=== PATIENT | female | born 1950 | race Caucasian/White ===

== ENCOUNTER → 2016-11-17 | Outpatient (CLI) | payer BC, MEDICARE ==
--- NOTE | 2016-11-19 11:59 | CR ---
EXAM DATE: 11/17/16 PATIENT'S AGE: 66 Patient: NATALIE PEOPLES Facility: [place], [place] Site . Site : 1950 Study: XRay Extremity Left [id number] 2:53:14 PM Ordering Physician: Paula Smith Final Report: HISTORY: Trauma and pain. Fell on ice in July. Findings: AP and frogleg views of the pelvis are compared 24 August 2016. The iliac crests have been excluded from the exam. Bilateral pelvic phleboliths are present. No subchondral abnormality. No subacute fracture or acute fracture line is seen. Impression: No subacute or acute fracture seen within the left hip. Dictated by Ayesha Gomes MD @ Nov 18 2016 10:48PM (Electronic Signature) Report Signed by Proxy and Original Signed Document filed in the Medical Record. CORWIN
== END ==
LOC: MW.CHORTHO 14:07
PROVIDERS: ATTEND Orthopaedic Surgery
DX: M25.552 Pain in left hip (principal)
CPT/HCPCS: 73502-26-LT; 73502-LT

== ENCOUNTER → 2016-12-03 | Outpatient (CLI) | payer BC, MEDICARE ==
--- NOTE | 2016-12-03 14:45 | MY ---
EXAMINATION: Bilateral digital mammography utilizing CAD. HISTORY: Screening exam. Comparison is made to previous studies dated 12/05/2015, 10/18/2014. FINDINGS: Bilateral scattered fibroglandular densities. No suspicious calcifications, masses or a rchitectural distortions. No pathologic appearing lymph nodes, no abnormal skin thickening or nipp le inversion. CAD highlighted regions appear normal at this time. IMPRESSION: BI-RADS category I - negative mammogram. Continued screening according to ACR-ACS gu idelines suggested. THE FALSE-NEGATIVE RATE OF MAMMOGRAM IS APPROXIMATELY 10%. MANAGEMENT OF A PALPABLE ABNORMALITY MUST BE BASED UPON CLINICAL GROUNDS. SENSITIVITY FOR DETECTION OF ABNORMALITIES IN DENSE BREASTS IS LOW. NOTE: A letter will be sent to the patient regarding findings. [facility] -- DANAE Lynch [phone] - FAX [phone]
== END ==
LOC: MW.MAM 11:03
PROVIDERS: ATTEND Obstetrics & Gynecology
DX: Z12.31 Encounter for screening mammogram for malignant neoplasm of breast (principal)
CPT/HCPCS: G0202; G0202-26

== ENCOUNTER 2017-04-12 00:15 | Emergency (ER) | payer BC, MEDICARE ==
--- NOTE | 2017-04-12 00:26 | EDM.PDOC ---
ED HPI GENERAL MEDICAL PROBLEM - General Chief Complaint: General Stated Complaint: HERE FOR A SHOT Time Seen by Provider: 04/12/17 00:22 - History of Present Illness INITIAL COMMENTS - FREE TEXT/NARRATIVE: HISTORY AND PHYSICAL: History of present illness: Patient 67-year-old female presents here for Neulasta injection patient's oncologist Dr. Orozco from [facility] called and asked if we would be a little comminuted 6 mg subcutaneous injection since her delivery device malfunctioned patient has no other requests and no other concerns Review of systems: As per history of present illness and below otherwise all systems reviewed and negative. Past medical history: As per history of present illness and as reviewed below otherwise noncontributory. Surgical history: As per history of present illness and as reviewed below otherwise noncontributory. Social history: No reported history of drug or alcohol abuse. Family history: As per history of present illness and as reviewed below otherwise noncontributory. Physical exam: Deferred Diagnostics: None Therapeutics: Neulasta 6 mg subcutaneous Impression: #1 medication request #2 history of lymphoma Definitive disposition and diagnosis as appropriate pending reevaluation and review of above. - Related Data Allergies Allergy/AdvReac Type Severity Reaction Status Date / Time Penicillins Allergy Unknown Rash Verified 04/12/17 00:20 succinylcholine Allergy Unknown Cannot Verified 04/12/17 00:20 [Succinylcholine] Remember methylene blue Allergy Severe Hypotension Uncoded 04/12/17 00:20 Home Meds: Home Meds Albuterol [Ventolin HFA] 1 puff INH Q4H PRN 11/23/13 [History] Esomeprazole [NexIUM] 1 tab PO DAILY 08/18/14 [History] Lisinopril 20 mg PO DAILY 08/24/16 [History] Past Medical History Cardiovascular History: Reports: Hypertension Respiratory History: Reports: Asthma Gastrointestinal History: Reports: GERD Other Gastrointestinal History: acid reflux 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: Other Oncologic History: Follicular lymphoma - Past Surgical History GI Surgical History: Reports: Small Bowel Female Surgical History: Reports: Hysterectomy, Salpingo-Oophorectomy Social & Family History - Family History Cardiac: Reports: Hypertension, [place], Prior Cardiac Arrest, Other (See Below) Other Cardiac Family History: rheumatic fever and developed heart problem OBGYN: Reports: Oncologic: Reports: Ovarian - Tobacco Use Smoking Status *Q: Never Smoker Second Hand Smoke Exposure: No - Caffeine Use Caffeine Use: Reports: Coffee - Alcohol Use Days Per Week of Alcohol Use: 0 Number of Drinks Per Day: 0 Total Drinks Per Week: 0 - Recreational Drug Use Recreational Drug Use: No Drug Use in Last 12 Months: No ED ROS GENERAL - Review of Systems Review Of Systems: ROS reveals no pertinent complaints other than HPI. ED EXAM, GENERAL - Physical Exam Exam: See Below (See dictation) Departure - Departure Time of Disposition: 00:25 Disposition: Home, Self-Care 01 Condition: Good Clinical Impression: Lymphoma, Medication requested - Discharge Information Referrals: Crispin Alfaro MD [Primary Care Provider] - Additional Instructions: The following information is given to patients seen in the emergency department who are being discharged to home. This information is to outline your options for follow-up care. We provide all patients seen in our emergency department with a follow-up referral. The need for follow-up, as well as the timing and circumstances, are variable depending upon the specifics of your emergency department visit. If you don't have a primary care physician on staff, we will provide you with a referral. We always advise you to contact your personal physician following an emergency department visit to inform them of the circumstance of the visit and for follow-up with them and/or the need for any referrals to a consulting specialist. The emergency department will also refer you to a specialist when appropriate. This referral assures that you have the opportunity for followup care with a specialist. All of these measure are taken in an effort to provide you with optimal care, which includes your followup. Under all circumstances we always encourage you to contact your private physician who remains a resource for coordinating your care. When calling for followup care, please make the office aware that this follow-up is from your recent emergency room visit. If for any reason you are refused follow-up, please contact the [facility] emergency department at and asked to speak to the emergency department charge nurse. Follow private medical doctor 1-2 days return as needed as discussed
[2017-04-12] MEDS ORDERED: [UNRECOGNIZED DRUG - OTHER] SUBCUT ONE (00:31)
[2017-04-12 00:57] VITALS: BP 138/76
== END 2017-04-12 01:01 | disposition home or self-care (01) ==
LOC: MW.ED 00:15
DX: C82.90 Follicular lymphoma, unspecified, unspecified site (principal); I10 Essential (primary) hypertension; J45.909 Unspecified asthma, uncomplicated; K21.9 Gastro-esophageal reflux disease without esophagitis; Z90.710 Acquired absence of both cervix and uterus; Z79.899 Other long term (current) drug therapy; Z88.0 Allergy status to penicillin; Z88.8 Allergy status to other drugs, medicaments and biological substances
CPT/HCPCS: 99281; J2505; 99282

== ENCOUNTER 2017-05-29 19:59 | Observation (INO) | payer BC, MEDICARE ==
--- NOTE | 2017-05-29 20:18 | EDM.PDOC ---
<Yanely Ayala - Last Filed: 05/29/17 21:58> ED HPI GENERAL MEDICAL PROBLEM - General Chief Complaint: Fever Stated Complaint: FEVER/ONCOLOGY PT Time Seen by Provider: 05/29/17 20:20 Source of Information: Reports: Patient History Limitations: Reports: No Limitations - History of Present Illness INITIAL COMMENTS - FREE TEXT/NARRATIVE: HISTORY AND PHYSICAL: History of present illness: [Patient comes to the emergency room complaining of not feeling feeling well and having a fever. 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 She received her most recent dose, which was her fifth round, of chemotherapy on May 21 at [place] and had labs done at that time. She reports that Platelets 159, hgb 8.1, wbc 0.64. She was advised to follow-up in the emergency room if she had a temperature over 100. She felt ill today and checked her temperature and got a reading of 101. She probably came to the emergency room for evaluation. She is unable to pinpoint any specific pain or complaint but overall is just not feeling well. Has had fever or chills this afternoon and evening, and generalized malaise. She denies runny nose earaches and sore throat. No cough or chest congestion. No chest pain shortness of breath or difficulty breathing. She's had ongoing swelling to her feet and lower legs since starting chemotherapy and denies any increased swelling or new onset pain. Is urinating easily and without burning. No low back pain. No diarrhea or constipation. No blood in her stools or urine. No new muscle or joint aches or pains. States that her heart rate has been increased since starting chemotherapy, usually running between 110 and 120. She has had several echocardiograms and is following this regularly with her doctors at [facility]. Follows regularly w/ PCP, Dr. Alfaro Review of systems: As per history of present illness and below otherwise all systems reviewed and negative. Past medical history: As per history of present illness and as reviewed below otherwise noncontributory. Surgical history: As per history of present illness and as reviewed below otherwise noncontributory. Social history: No reported history of drug or alcohol abuse. Family history: As per history of present illness and as reviewed below otherwise noncontributory. Physical exam: General: Temperature 101.3 orally. Heart rate 116. HEENT: Atraumatic, normocephalic. TMs are pearly duff and without erythema and effusion. Oral mucous membranes are pink and moist. No tonsillar swelling erythema or exudate. Neck supple and nontender. No lymphadenopathy. Lungs: Clear to auscultation, breath sounds equal bilaterally. No wheezing crackles or rales. Heart: S1S2, regular rate and rhythm., negative for clicks, rubs, or JVD. Abdomen: Soft, nondistended, nontender. Negative for guarding and rebound. Negative for costovertebral tenderness. Pelvis: Stable nontender. Genitourinary: Deferred. Rectal: Deferred. Extremities: Atraumatic in appearance. Swollen but nonpitting.. Neurovascular unremarkable. Neuro: Awake, alert, oriented. Motor and sensory unremarkable throughout. Exam nonfocal. Psych: Pleasant conversational. Diagnostics: [CXR, CBC, CMP, UA, urine culture, blood cultures x2, lactic acid] Therapeutics: [1 liter NS at 500mL/hour, Tylenol 1000mg po] Impression: [] Plan: [Urinalysis is clear.] Definitive disposition and diagnosis as appropriate pending reevaluation and review of above. - Related Data Allergies Allergy/AdvReac Type Severity Reaction Status Date / Time Penicillins Allergy Unknown Rash Verified 05/29/17 20:20 succinylcholine Allergy Unknown Cannot Verified 05/29/17 20:20 [Succinylcholine] Remember methylene blue Allergy Severe Hypotension Uncoded 05/29/17 20:20 Home Meds: Home Meds Albuterol [Ventolin HFA] 1 puff INH Q4H PRN 11/23/13 [History] Apixaban [Eliquis] 5 mg PO BID 04/12/17 [History] Ascorbic Acid [Vitamin C] 1,000 mg PO BID 04/12/17 [History] Calcium Carbonate [Calcium] 500 mg PO BID 04/12/17 [History] Cyanocobalamin (Vitamin B12) [Vitamin B12] 1,000 mcg PO DAILY 04/12/17 [History] Multivitamin [Multivitamins] 1 tab PO DAILY 04/12/17 [History] Pegfilgrastim [Neulasta] 6 mg SQ ASDIRECTED 04/12/17 [History] Rchop 0 mg IV ASDIRECTED 04/12/17 [History] Thiamine [Vitamin B-1] 100 mg PO DAILY 04/12/17 [History] Vitamin B6-pyridOXINE [Vitamin B6] 100 mg PO DAILY 04/12/17 [History] Alpha Lipoic Acid 200 mg PO BID 05/29/17 [History] Cholecalciferol (Vitamin D3) [Vitamin D3] 2,000 mg PO BID 05/29/17 [History] Fish Oil/[place]-3 Fatty Acids [Fish Oil 1,000 MG] 1,000 mg PO DAILY 05/29/17 [ History] Hydrochlorothiazide 12.5 mg PO DAILY PRN 05/29/17 [History] L.acidoph,Paracasei, B.lactis [Probiotic] 1 cap PO DAILY 05/29/17 [History] Magnesium 400 mg PO DAILY 05/29/17 [History] Vit C/E/Zn/Coppr/Lutein/Zeaxan [Preservision Areds 2 Softgel] 1 cap PO DAILY 10/10 [History] Past Medical History - Past Health History Medical/Surgical History: Denies Medical/Surgical History HEENT History: Reports: Impaired Vision Other HEENT History: wears glasses Cardiovascular History: Reports: Hypertension Respiratory History: Reports: Asthma Gastrointestinal History: Reports: GERD Other Gastrointestinal History: acid reflux 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: Endocrine/Metabolic History: Reports: Obesity/BMI 30+ Other Oncologic History: Follicular lymphoma - Past Surgical History GI Surgical History: Reports: Small Bowel Female Surgical History: Reports: Hysterectomy, Salpingo-Oophorectomy Social & Family History - Family History Family Medical History: Noncontributory Cardiac: Reports: Hypertension, [place], Prior Cardiac Arrest, Other (See Below) Other Cardiac Family History: rheumatic fever and developed heart problem OBGYN: Reports: Oncologic: Reports: Ovarian - Tobacco Use Smoking Status *Q: Never Smoker Second Hand Smoke Exposure: No - Caffeine Use Caffeine Use: Reports: Coffee - Alcohol Use Days Per Week of Alcohol Use: 0 Number of Drinks Per Day: 0 Total Drinks Per Week: 0 - Recreational Drug Use Recreational Drug Use: No Drug Use in Last 12 Months: No ED ROS GENERAL - Review of Systems Review Of Systems: ROS reveals no pertinent complaints other than HPI. ED EXAM, SEPSIS - Physical Exam Exam: See Below Course - Vital Signs Last Recorded V/S: Last Vital Signs Temp 37.2 C 05/29/17 23:27 Pulse 116 H 05/29/17 23:27 Resp 18 05/29/17 23:27 BP 140/64 05/29/17 23:27 Pulse Ox 94 L 05/29/17 23:27 - Orders/Labs/Meds Orders: Active Orders 24 hr Category Date Time Status Chest 2V [CR] Stat Exams 05/29/17 20:19 Taken CULTURE BLOOD [BC] Stat Lab 05/29/17 20:38 Received CULTURE BLOOD [BC] Stat Lab 05/29/17 22:02 Results CULTURE URINE [RM] Stat Lab 05/29/17 20:55 Received Cefepime [Maxipime in D5W 2 GM/50 ML] 2 gm Med 05/29/17 23:49 Active Premix Bag 1 bag IV ONETIME Vancomycin [Vancocin] 1 gm Med 05/29/17 23:53 Active Sodium Chloride 0.9% [Normal Saline] 250 ml IV ONETIME Blood Culture x2 Reflex Set [OM.PC] Stat Oth 05/29/17 20:19 Ordered Medication Orders Cefepime HCl 2 gm/ Premix 50 mls @ 100 mls/hr IV ONETIME ONE Stop: 05/30/17 00:18 Vancomycin HCl 1 gm/ Sodium (Chloride) 250 mls @ 166 mls/hr IV ONETIME ONE Stop: 05/30/17 01:23 Labs: Laboratory Tests 05/29/17 05/29/17 05/29/17 Range/Units 20:55 22:02 22:02 WBC 0.97 L (4.0-11.0) K/uL RBC 2.66 L (4.30-5.90) M/uL Hgb 7.6 L (12.0-16.0) g/dL Hct 23.4 L (36.0-46.0) % MCV 88.0 (80.0-98.0) fL MCH 28.6 (27.0-32.0) pg MCHC 32.5 (31.0-37.0) g/dL RDW Std Deviation 59.3 (28.0-62.0) fl RDW Coeff of Jessica 19 H (11.0-15.0) % Plt Count 150 (150-400) K/uL MPV 10.60 (7.40-12.00) fL Add Manual Diff YES Neutrophils % (Manual) 14 L (48.0-80.0) % Band Neutrophils % 2 % Lymphocytes % (Manual) 58 H (16.0-40.0) % Monocytes % (Manual) 10 (0.0-15.0) % Eosinophils % (Manual) 10 H (0.0-7.0) % Basophils % (Manual) 6 H (0.0-1.5) % Nucleated RBC % 6.7 /100WBC Absolute Seg Neuts 0.1 L (1.4-5.7) Band Neutrophils # 0 Lymphocytes # (Manual) 0.6 (0.6-2.4) Monocytes # (Manual) 0.1 (0.0-0.8) Eosinophils # (Manual) 0.1 (0.0-0.7) Basophils # (Manual) 0.1 (0.0-0.1) Nucleated RBCs # 1 K/uL Lactate 1.2 (0.20-2.00) mmol/L Sodium (136-146) mmol/L Potassium (3.5-5.1) mmol/L Chloride (98-110) mmol/L Carbon Dioxide (21-31) mmol/L BUN (6.0-23.0) mg/dL Creatinine (0.6-1.5) mg/dL Est Cr Clr Drug Dosing mL/min Estimated GFR (MDRD) ml/min Glucose (60-110) mg/dL Calcium (8.8-10.8) mg/dL Total Bilirubin (0.1-1.5) mg/dL AST (5-40) IU/L ALT (8-54) IU/L Alkaline Phosphatase (40-150) Total Protein (6.0-8.0) g/dL Albumin (3.4-4.8) g/dL Globulin (2.0-3.5) g/dL Albumin/Globulin Ratio (1.3-2.8) Urine Color YELLOW Urine Appearance CLEAR Urine pH 7.0 (5.0-8.0) Ur Specific [place] 1.010 (1.001-1.035) Urine Protein NEGATIVE (NEGATIVE) mg/dL Urine Glucose (UA) NEGATIVE (NEGATIVE) mg/dL Urine Ketones NEGATIVE (NEGATIVE) mg/dL Urine Occult Blood NEGATIVE (NEGATIVE) Urine Nitrite NEGATIVE (NEGATIVE) Urine Bilirubin NEGATIVE (NEGATIVE) Urine Urobilinogen 0.2 (<2.0) EU/dL Ur Leukocyte Esterase NEGATIVE (NEGATIVE) Urine RBC 0-2 (0-2/HPF) Urine WBC 1-3 (0-5/HPF) Ur Epithelial Cells FEW (NONE-FEW) Amorphous Sediment FEW (NEGATIVE) Urine Bacteria FEW (NEGATIVE) Urine Mucus RARE (NONE-MOD) 05/29/17 Range/Units 22:02 WBC (4.0-11.0) K/uL RBC (4.30-5.90) M/uL Hgb (12.0-16.0) g/dL Hct (36.0-46.0) % MCV (80.0-98.0) fL MCH (27.0-32.0) pg MCHC (31.0-37.0) g/dL RDW Std Deviation (28.0-62.0) fl RDW Coeff of Jessica (11.0-15.0) % Plt Count (150-400) K/uL MPV (7.40-12.00) fL Add Manual Diff Neutrophils % (Manual) (48.0-80.0) % Band Neutrophils % % Lymphocytes % (Manual) (16.0-40.0) % Monocytes % (Manual) (0.0-15.0) % Eosinophils % (Manual) (0.0-7.0) % Basophils % (Manual) (0.0-1.5) % Nucleated RBC % /100WBC Absolute Seg Neuts (1.4-5.7) Band Neutrophils # Lymphocytes # (Manual) (0.6-2.4) Monocytes # (Manual) (0.0-0.8) Eosinophils # (Manual) (0.0-0.7) Basophils # (Manual) (0.0-0.1) Nucleated RBCs # K/uL Lactate (0.20-2.00) mmol/L Sodium 137 (136-146) mmol/L Potassium 4.0 (3.5-5.1) mmol/L Chloride 105 (98-110) mmol/L Carbon Dioxide 25 (21-31) mmol/L BUN 9 (6.0-23.0) mg/dL Creatinine 0.7 (0.6-1.5) mg/dL Est Cr Clr Drug Dosing 63.63 mL/min Estimated GFR (MDRD) > 60.0 ml/min Glucose 127 H (60-110) mg/dL Calcium 8.7 L (8.8-10.8) mg/dL Total Bilirubin 0.2 (0.1-1.5) mg/dL AST 10 (5-40) IU/L ALT 12 (8-54) IU/L Alkaline Phosphatase 58 (40-150) Total Protein 5.5 L (6.0-8.0) g/dL Albumin 3.2 L (3.4-4.8) g/dL Globulin 2.3 (2.0-3.5) g/dL Albumin/Globulin Ratio 1.4 (1.3-2.8) Urine Color Urine Appearance Urine pH (5.0-8.0) Ur Specific [place] (1.001-1.035) Urine Protein (NEGATIVE) mg/dL Urine Glucose (UA) (NEGATIVE) mg/dL Urine Ketones (NEGATIVE) mg/dL Urine Occult Blood (NEGATIVE) Urine Nitrite (NEGATIVE) Urine Bilirubin (NEGATIVE) Urine Urobilinogen (<2.0) EU/dL Ur Leukocyte Esterase (NEGATIVE) Urine RBC (0-2/HPF) Urine WBC (0-5/HPF) Ur Epithelial Cells (NONE-FEW) Amorphous Sediment (NEGATIVE) Urine Bacteria (NEGATIVE) Urine Mucus (NONE-MOD) Meds: Medications Generic Name Dose Route Start Last Admin Trade Name Freq PRN Reason Stop Dose Admin Cefepime HCl 2 gm/ Premix 50 mls @ 100 mls/hr 05/29/17 23:49 IV 05/30/17 00:18 ONETIME ONE Vancomycin HCl 1 gm/ Sodium 250 mls @ 166 mls/hr 05/29/17 23:53 Chloride IV 05/30/17 01:23 ONETIME ONE Discontinued Medications Generic Name Dose Route Start Last Admin Trade Name Freq PRN Reason Stop Dose Admin Acetaminophen 1,000 mg 05/29/17 20:34 05/29/17 20:56 Tylenol Extra Strength PO 05/29/17 20:35 1,000 mg ONETIME ONE Administration Sodium Chloride 1,000 mls @ 500 mls/hr 05/29/17 20:33 05/29/17 22:02 Normal Saline IV 05/29/17 22:32 500 mls/hr STAT ONE Administration Departure - Departure Disposition: Refer to Observation Clinical Impression: Lymphoma, Neutropenic fever - Discharge Information Referrals: Crispin Alfaro MD [Primary Care Provider] - Forms: ED Department Discharge - My Orders Last 24 Hours: My Active Orders 05/29/17 23:49 Cefepime [Maxipime in D5W 2 GM/50 ML] 2 gm Premix Bag 1 bag IV ONETIME 05/29/17 23:53 Vancomycin [Vancocin] 1 gm Sodium Chloride 0.9% [Normal Saline] 250 ml IV ONETIME - Assessment/Plan Last 24 Hours: My Active Orders 05/29/17 23:49 Cefepime [Maxipime in D5W 2 GM/50 ML] 2 gm Premix Bag 1 bag IV ONETIME 05/29/17 23:53 Vancomycin [Vancocin] 1 gm Sodium Chloride 0.9% [Normal Saline] 250 ml IV ONETIME <Petar Moctezuma - Last Filed: 05/29/17 23:56> ED HPI GENERAL MEDICAL PROBLEM - History of Present Illness INITIAL COMMENTS - FREE TEXT/NARRATIVE: Patient remains neutropenic with fever I discussed case with on-call oncology for patient at [facility] who agrees with admission with cefepime and vancomycin and observation for surveillance cultures I discussed case with Dr. Cutler who graciously accepted the patient Impression #1 history of B cell lymphoma #2 neutropenic fever Departure - Departure Time of Disposition: 23:55 Condition: Good
[2017-05-29] MEDS ORDERED: Sodium Chloride 0.9% 1,000 ML IV ONE (20:33)
[2017-05-29] MEDS ORDERED: Acetaminophen 500 MG Tab PO ONE (20:34)
[2017-05-29 22:31] LABS: CHLORIDE,CL 105 mmol/L (98-110); SODIUM,NA 137 mmol/L (136-146)
[2017-05-29] MEDS ORDERED: Cefepime 2 GM in Premix Bag 1 BAG IV ONE (23:49)
[2017-05-30] MEDS ORDERED: Acetaminophen 325 MG Tab PO PRN (02:01)
[2017-05-30] MEDS ORDERED: Heparin Sodium 10 Units/ML 5 ML Syringe FLUSH PRN (04:23)
[2017-05-30] MEDS ORDERED: Heparin Sodium 100 Units/ML 3 ML Syringe ONE ×2 (04:46→04:47)
[2017-05-30 06:29] LABS: CHLORIDE,CL 108 mmol/L (98-110); SODIUM,NA 140 mmol/L (136-146)
[2017-05-30] MEDS: Cefepime 2 GM in Premix Bag 1 BAG IV SCH ×3 (09:05→23:04)
[2017-05-30] MEDS: Heparin Sodium 100 Units/ML 3 ML Syringe FLUSH PRN ×2 (09:57→23:41)
[2017-05-30] MEDS ORDERED: Hydrochlorothiazide 12.5 MG Cap PO PRN (11:08)
[2017-05-30] MEDS ORDERED: Albuterol 8 GM Inhaler INH PRN (11:08)
[2017-05-30] MEDS ORDERED: Ondansetron 4 MG/2 ML SDV IVPUSH PRN (11:23)
--- NOTE | 2017-05-30 11:30 | PCM.HP ---
H&P History of Present Illness - General Admit Problem/Dx: Admission Diagnosis/Problem Admission Diagnosis/Problem Neutropenia - History of Present Illness Initial Comments - Free Text/Narative: 67 yo female with pmh of diffuse large B cell lymphoma who doctors at [facility], Currently receiving chemotherapy of RCHOP patient reportedly expects to skye blood counts next Thursday. She felt hot and clammy and had a temperature of 101 Fahrenheit at home and 38.5 Celsius in the ED. She reports no localizing symptoms. CXR and UA were unremarkable. Blood cultures were drawn from periphery and port. She was given cefepime and vancomycin adn admitted for neutropenic fever. - Related Data Allergies/Adverse Reactions: Allergies Allergy/AdvReac Type Severity Reaction Status Date / Time Penicillins Allergy Unknown Rash Verified 05/29/17 20:20 succinylcholine Allergy Unknown Cannot Verified 05/29/17 20:20 [Succinylcholine] Remember methylene blue Allergy Severe Hypotension Uncoded 05/29/17 20:20 Home Medications: Home Meds Albuterol [Ventolin HFA] 1 puff INH Q4H PRN 11/23/13 [History] Apixaban [Eliquis] 5 mg PO BID 04/12/17 [History] Ascorbic Acid [Vitamin C] 1,000 mg PO BID 04/12/17 [History] Calcium Carbonate [Calcium] 500 mg PO BID 04/12/17 [History] Cyanocobalamin (Vitamin B12) [Vitamin B12] 1,000 mcg PO DAILY 04/12/17 [History] Multivitamin [Multivitamins] 1 tab PO DAILY 04/12/17 [History] Pegfilgrastim [Neulasta] 6 mg SQ ASDIRECTED 04/12/17 [History] Rchop 0 mg IV ASDIRECTED 04/12/17 [History] Thiamine [Vitamin B-1] 100 mg PO DAILY 04/12/17 [History] Vitamin B6-pyridOXINE 100 mg PO DAILY 04/12/17 [History] Alpha Lipoic Acid 200 mg PO BID 05/29/17 [History] Cholecalciferol (Vitamin D3) [Vitamin D3] 2,000 mg PO BID 05/29/17 [History] Fish Oil/[place]-3 Fatty Acids [Fish Oil 1,000 MG] 1,000 mg PO DAILY 05/29/17 [ History] Hydrochlorothiazide 12.5 mg PO DAILY PRN 05/29/17 [History] L.acidoph,Paracasei, B.lactis [Probiotic] 1 cap PO DAILY 05/29/17 [History] Magnesium 400 mg PO DAILY 05/29/17 [History] Vit C/E/Zn/Coppr/Lutein/Zeaxan [Preservision Areds 2 Softgel] 1 cap PO DAILY 10/10 [History] Levofloxacin [Levaquin] 750 mg PO DAILY #5 tablet 05/31/17 [Rx] Past Medical History - Past Health History Medical/Surgical History: Denies Medical/Surgical History HEENT History: Reports: Impaired Vision Other HEENT History: wears glasses Cardiovascular History: Reports: Hypertension Respiratory History: Reports: Asthma Gastrointestinal History: Reports: GERD Other Gastrointestinal History: acid reflux Genitourinary History: Reports: None 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: Endocrine/Metabolic History: Reports: Obesity/BMI 30+ Oncologic (Cancer) History: Reports: Other (See Below) Other Oncologic History: Follicular lymphoma - Infectious Disease History Infectious Disease History: Reports: Measles - Past Surgical History Head Surgeries/Procedures: Reports: None Cardiovascular Surgical History: Reports: None Respiratory Surgical History: Reports: None GI Surgical History: Reports: Cholecystectomy, Small Bowel Female Surgical History: Reports: Hysterectomy, Salpingo-Oophorectomy Social & Family History - Family History Family Medical History: Noncontributory Cardiac: Reports: Hypertension, NM, Prior Cardiac Arrest, Other (See Below) Other Cardiac Family History: rheumatic fever and developed heart problem OBGYN: Reports: Oncologic: Reports: Ovarian - Tobacco Use Smoking Status *Q: Never Smoker Second Hand Smoke Exposure: No - Caffeine Use Caffeine Use: Reports: Tea - Alcohol Use Days Per Week of Alcohol Use: 0 Number of Drinks Per Day: 0 Total Drinks Per Week: 0 - Recreational Drug Use Recreational Drug Use: No Drug Use in Last 12 Months: No H&P Review of Systems - Review of Systems: Review Of Systems: ROS reveals no pertinent complaints other than HPI. Exam - Exam Exam: See Below - Vital Signs Vital Signs: Last Vital Signs Temp 36.8 C 05/30/17 08:00 Pulse 94 05/30/17 08:00 Resp 16 05/30/17 08:00 BP 116/67 05/30/17 08:00 Pulse Ox 95 05/30/17 08:00 Weight: 114.6 kg - Exam General: Alert, Oriented HEENT: Mucosa Moist & [place] Lungs: Clear to Auscultation, Normal Respiratory Effort Cardiovascular: Regular Rate, Regular Rhythm GI/Abdominal Exam: Normal Bowel Sounds, Soft, Non-Tender Extremities: Normal Inspection, Non-Tender, Pedal Edema (+1) Skin: Warm, Dry, Intact Neurological: No: Focal Deficit - Patient Data Lab Results Last 24 hrs: Laboratory Results - last 24 hr 05/30/17 05/30/17 Range/Units 05:55 05:55 WBC 1.71 L (4.0-11.0) K/uL RBC 2.68 L (4.30-5.90) M/uL Hgb 7.6 L (12.0-16.0) g/dL Hct 23.8 L (36.0-46.0) % MCV 88.8 (80.0-98.0) fL MCH 28.4 (27.0-32.0) pg MCHC 31.9 (31.0-37.0) g/dL RDW Std Deviation 60.1 (28.0-62.0) fl RDW Coeff of Jessica 19 H (11.0-15.0) % Plt Count 108 L (150-400) K/uL MPV 10.60 (7.40-12.00) fL Add Manual Diff YES Neutrophils % (Manual) 15 L (48.0-80.0) % Band Neutrophils % 5 % Lymphocytes % (Manual) 52 H (16.0-40.0) % Monocytes % (Manual) 10 (0.0-15.0) % Eosinophils % (Manual) 11 H (0.0-7.0) % Basophils % (Manual) 4 H (0.0-1.5) % Metamyelocytes % 2 % Myelocytes % 1 % Nucleated RBC % 7.3 /100WBC Absolute Seg Neuts 0.3 L (1.4-5.7) Band Neutrophils # 0.1 Lymphocytes # (Manual) 0.9 (0.6-2.4) Monocytes # (Manual) 0.2 (0.0-0.8) Eosinophils # (Manual) 0.2 (0.0-0.7) Basophils # (Manual) 0.1 (0.0-0.1) Absolute Metamyelocyte 0 Absolute Myelocytes 0 Nucleated RBCs # 1 K/uL Poikilocytosis 1+ SLIGHT Anisocytosis 1+ SLIGHT Sodium 140 (136-146) mmol/L Potassium 4.0 (3.5-5.1) mmol/L Chloride 108 (98-110) mmol/L Carbon Dioxide 25 (21-31) mmol/L BUN 7 (6.0-23.0) mg/dL Creatinine 0.6 (0.6-1.5) mg/dL Est Cr Clr Drug Dosing 74.21 mL/min Estimated GFR (MDRD) > 60.0 ml/min Glucose 102 (60-110) mg/dL Calcium 8.5 L (8.8-10.8) mg/dL Result Diagrams: 05/31/17 05:16 05/31/17 05:16 *Q Meaningful Use (ADM) - VTE *Q VTE Criteria *Q: - Stroke *Q Stroke Criteria *Q: - AMI *Q AMI Criteria *Q: Problem List Initiated/Reviewed/Updated: Yes Orders Last 24hrs: Active Orders 24 hr Category Date Time Status Intake and Output [RC] QSHIFT Care 05/30/17 11:23 Ordered Oxygen Therapy [RC] PRN Care 05/30/17 11:23 Ordered Up ad Inga [RC] ASDIRECTED Care 05/30/17 11:23 Ordered VTE/DVT Education [RC] PER UNIT ROUTINE Care 05/30/17 11:23 Ordered Vital Signs [RC] Q4H Care 05/30/17 11:23 Ordered Neutropenic [DIET] Diet 05/30/17 Breakfast Active BASIC METABOLIC PANEL,BMP [CHEM] AM Lab 05/31/17 05:11 Ordered CBC WITH AUTO DIFF [HEME] AM Lab 05/31/17 05:11 Ordered RED BLOOD CELLS LP [BBK] Routine Lab 05/30/17 11:21 Ordered TYPE AND SCREEN [BBK] Routine Lab 05/30/17 11:21 Ordered VANCOMYCIN TROUGH [CHEM] Routine Lab 05/31/17 10:30 Ordered Albuterol [Ventolin HFA] Med 05/30/17 11:08 Active 8 gm INH Q4H PRN Apixaban [Eliquis] Med 05/30/17 11:15 Active 5 mg PO BID Cefepime [Maxipime in D5W 2 GM/50 ML] 2 gm Med 05/30/17 08:00 Active Premix Bag 1 bag IV Q8H Heparin Sodium [Heparin Lock Flush 100 Units/ML] Med 05/30/17 05:29 Active 300 unit FLUSH Q8H PRN Hydrochlorothiazide Med 05/30/17 11:08 Active 12.5 mg PO DAILY PRN Ondansetron [Zofran] Med 05/30/17 11:23 Ordered 4 mg IVPUSH Q4H PRN Vancomycin 1,250 mg Med 05/30/17 11:30 Active Sodium Chloride 0.9% [Normal Saline] 250 ml IV Q8H Vancomycin Pharmacy to Dose [Pharmacy to Dose - Med 05/30/17 11:00 Active Vancomycin] 1 dose .XX ASDIRECTED Transfuse Red Blood Cells [COMM] Routine Oth 05/30/17 11:21 Ordered Resuscitation Status Routine Resus Stat 05/30/17 11:23 Ordered Medication Orders Albuterol (Ventolin Hfa) 8 gm INH Q4H PRN PRN Reason: Shortness of Breath Apixaban (Eliquis) 5 mg PO BID [facility] Heparin Sodium (Porcine) (Heparin Lock Flush 100 Units/Ml) 300 unit FLUSH Q8H PRN PRN Reason: Other Last Admin: 05/30/17 09:57 Dose: 300 unit Hydrochlorothiazide (Hydrochlorothiazide) 12.5 mg PO DAILY PRN PRN Reason: Hypertension Cefepime HCl 2 gm/ Premix 50 mls @ 100 mls/hr IV Q8H [facility] Last Admin: 05/30/17 09:05 Dose: 100 mls/hr Vancomycin HCl 1,250 mg/ (Sodium Chloride) 250 mls @ 166.667 mls/hr IV Q8H [facility] Ondansetron HCl (Zofran) 4 mg IVPUSH Q4H PRN PRN Reason: Nausea Vancomycin HCl (Pharmacy To Dose - Vancomycin) 1 dose .XX ASDIRECTED [facility] Assessment/Plan Comment:: 67 yo female with lymphoma who is admitted for neutropenic fever. Neutropenic fever: We will continue antibiotics of cefepime and vancomycin, blood cultures are pending History of Jugular vein clot: continue Eliquis Symptomatic anemia: patient reports transfusion at Hgb at 7.5 in past with improvement in her symptoms of fatigue and is requesting transfusion. Will transfuse two units.
[2017-05-30] MEDS: Apixaban 5 MG Tab PO SCH ×2 (11:42→21:16)
--- NOTE | 2017-05-30 14:23 | CR ---
EXAM DATE: 05/29/17 PATIENT'S AGE: 67 Patient: NATALIE PEOPLES Facility: [place], [place] Site . Site : 1950 Study: XRay Chest [id number] 8:55:08 PM Ordering Physician: Doctor Vaughan Final Report: INDICATION: Fever. TECHNIQUE: Chest radiograph 2 views COMPARISON: None FINDINGS: Right IJ central venous catheter. Lungs are clear. No peribronchial thickening, pleural effusion, or pneumothorax. Surgical clips are noted in the left upper abdominal quadrant near the GE junction. Heart and mediastinal contours are within normal limits. IMPRESSION: 1. No acute cardiopulmonary disease is seen. Dictated by Isiah Masterson MD @ 05/29/2017 9:14:59 PM Dictated by: Isiah Masterson MD @ 05/29/2017 21:15:04 (Electronic Signature) Report Signed by Proxy. CORWIN
[2017-05-31] MEDS: Heparin Sodium 100 Units/ML 3 ML Syringe FLUSH PRN ×2 (04:53→09:06)
[2017-05-31 06:13] LABS: CHLORIDE,CL 106 mmol/L (98-110); SODIUM,NA 139 mmol/L (136-146)
--- NOTE | 2017-05-31 07:56 | PCM.DCSUM1 ---
Discharge Summary - Discharge Data Discharge Date: 05/31/17 Discharge Disposition: Home, Self-Care 01 Condition: Good - Patient Summary/Data Hospital Course: 67 yo female with pmh of diffuse large B Cell lymphoma currently undergoing chemotherapy who was admitted for neutropenic fever. She presented with fever of 101 degrees Fahrenheit but with no localizing symptoms. Her chest x-ray and UA were unremarkable. Her WBC was 0.97 and Hgb was 7.6. Due to symptoms of fatigue she was transfused two units of pRBCs with rise of Hgb to 9.4. She was treated with cefepime and vancomycin. Blood cultures are no growth to date. Today she is requesting discharge. Her ANC is 1,700 today. She was discharged home with levaquin 750 mg daily for five days. She is to follow up with Dr. Alfaro. - Patient Instructions Notify Provider of: Fever - Discharge Plan Prescriptions/Med Rec: Levofloxacin [Levaquin] 750 mg PO DAILY #5 tablet Home Medications: Home Meds Albuterol [Ventolin HFA] 1 puff INH Q4H PRN 11/23/13 [History] Apixaban [Eliquis] 5 mg PO BID 04/12/17 [History] Ascorbic Acid [Vitamin C] 1,000 mg PO BID 04/12/17 [History] Calcium Carbonate [Calcium] 500 mg PO BID 04/12/17 [History] Cyanocobalamin (Vitamin B12) [Vitamin B12] 1,000 mcg PO DAILY 04/12/17 [History] Multivitamin [Multivitamins] 1 tab PO DAILY 04/12/17 [History] Pegfilgrastim [Neulasta] 6 mg SQ ASDIRECTED 04/12/17 [History] Rchop 0 mg IV ASDIRECTED 04/12/17 [History] Thiamine [Vitamin B-1] 100 mg PO DAILY 04/12/17 [History] Vitamin B6-pyridOXINE 100 mg PO DAILY 04/12/17 [History] Alpha Lipoic Acid 200 mg PO BID 05/29/17 [History] Cholecalciferol (Vitamin D3) [Vitamin D3] 2,000 mg PO BID 05/29/17 [History] Fish Oil/[place]-3 Fatty Acids [Fish Oil 1,000 MG] 1,000 mg PO DAILY 05/29/17 [ History] Hydrochlorothiazide 12.5 mg PO DAILY PRN 05/29/17 [History] L.acidoph,Paracasei, B.lactis [Probiotic] 1 cap PO DAILY 05/29/17 [History] Magnesium 400 mg PO DAILY 05/29/17 [History] Vit C/E/Zn/Coppr/Lutein/Zeaxan [Preservision Areds 2 Softgel] 1 cap PO DAILY 10/10 [History] Levofloxacin [Levaquin] 750 mg PO DAILY #5 tablet 05/31/17 [Rx] Referrals: Crispin Alfaro MD [Primary Care Provider] - - Patient Data Vitals - Most Recent: Last Vital Signs Temp 36.9 C 05/31/17 05:17 Pulse 93 05/31/17 05:17 Resp 20 05/31/17 05:17 BP 134/69 05/31/17 05:17 Pulse Ox 93 L 05/31/17 05:17 Weight - Most Recent: 114.6 kg I&O - Last 24 hours: Intake & Output 05/30/17 05/31/17 05/31/17 23:59 06:59 14:59 Intake Total Output Total Balance Lab Results - Last 24 hrs: Laboratory Results - last 24 hr 05/30/17 05/30/17 05/31/17 Range/Units 05:55 11:31 05:16 WBC 1.71 L 3.53 L (4.0-11.0) K/uL RBC 2.68 L 3.27 L (4.30-5.90) M/uL Hgb 7.6 L 9.4 L (12.0-16.0) g/dL Hct 23.8 L 28.4 L (36.0-46.0) % MCV 88.8 86.9 (80.0-98.0) fL MCH 28.4 28.7 (27.0-32.0) pg MCHC 31.9 33.1 (31.0-37.0) g/dL RDW Std Deviation 60.1 55.7 (28.0-62.0) fl RDW Coeff of Jessica 19 H 18 H (11.0-15.0) % Plt Count 108 L 116 L (150-400) K/uL MPV 10.60 10.90 (7.40-12.00) fL Neut % (Auto) HYDROELECTRIC COMPONENT MACHINIST Lymph % (Auto) HYDROELECTRIC COMPONENT MACHINIST Ralls % (Auto) HYDROELECTRIC COMPONENT MACHINIST Eos % (Auto) HYDROELECTRIC COMPONENT MACHINIST Baso % (Auto) HYDROELECTRIC COMPONENT MACHINIST Neut # (Auto) HYDROELECTRIC COMPONENT MACHINIST Lymph # (Auto) HYDROELECTRIC COMPONENT MACHINIST Ralls # (Auto) HYDROELECTRIC COMPONENT MACHINIST Eos # (Auto) HYDROELECTRIC COMPONENT MACHINIST Baso # (Auto) HYDROELECTRIC COMPONENT MACHINIST Add Manual Diff YES YES Neutrophils % (Manual) 15 L 50 (48.0-80.0) % Band Neutrophils % 5 12 % Lymphocytes % (Manual) 52 H 27 (16.0-40.0) % Monocytes % (Manual) 10 8 (0.0-15.0) % Eosinophils % (Manual) 11 H 1 (0.0-7.0) % Basophils % (Manual) 4 H 2 H (0.0-1.5) % Metamyelocytes % 2 % Myelocytes % 1 % Nucleated RBC % 7.3 18.3 /100WBC Absolute Seg Neuts 0.3 L 1.8 (1.4-5.7) Band Neutrophils # 0.1 0.4 Lymphocytes # (Manual) 0.9 1.0 (0.6-2.4) Monocytes # (Manual) 0.2 0.3 (0.0-0.8) Eosinophils # (Manual) 0.2 0.0 (0.0-0.7) Basophils # (Manual) 0.1 0.1 (0.0-0.1) Absolute Metamyelocyte 0 Absolute Myelocytes 0 Nucleated RBCs # 1 2 K/uL Poikilocytosis 1+ SLIGHT Anisocytosis 1+ SLIGHT Sodium (136-146) mmol/L Potassium (3.5-5.1) mmol/L Chloride (98-110) mmol/L Carbon Dioxide (21-31) mmol/L BUN (6.0-23.0) mg/dL Creatinine (0.6-1.5) mg/dL Est Cr Clr Drug Dosing mL/min Estimated GFR (MDRD) ml/min Glucose (60-110) mg/dL Calcium (8.8-10.8) mg/dL Blood Type O POSITIVE Antibody Screen NEGATIVE Crossmatch See Detail 05/31/17 Range/Units 05:16 WBC (4.0-11.0) K/uL RBC (4.30-5.90) M/uL Hgb (12.0-16.0) g/dL Hct (36.0-46.0) % MCV (80.0-98.0) fL MCH (27.0-32.0) pg MCHC (31.0-37.0) g/dL RDW Std Deviation (28.0-62.0) fl RDW Coeff of Jessica (11.0-15.0) % Plt Count (150-400) K/uL MPV (7.40-12.00) fL Neut % (Auto) Lymph % (Auto) Ralls % (Auto) Eos % (Auto) Baso % (Auto) Neut # (Auto) Lymph # (Auto) Ralls # (Auto) Eos # (Auto) Baso # (Auto) Add Manual Diff Neutrophils % (Manual) (48.0-80.0) % Band Neutrophils % % Lymphocytes % (Manual) (16.0-40.0) % Monocytes % (Manual) (0.0-15.0) % Eosinophils % (Manual) (0.0-7.0) % Basophils % (Manual) (0.0-1.5) % Metamyelocytes % % Myelocytes % % Nucleated RBC % /100WBC Absolute Seg Neuts (1.4-5.7) Band Neutrophils # Lymphocytes # (Manual) (0.6-2.4) Monocytes # (Manual) (0.0-0.8) Eosinophils # (Manual) (0.0-0.7) Basophils # (Manual) (0.0-0.1) Absolute Metamyelocyte Absolute Myelocytes Nucleated RBCs # K/uL Poikilocytosis Anisocytosis Sodium 139 (136-146) mmol/L Potassium 3.6 (3.5-5.1) mmol/L Chloride 106 (98-110) mmol/L Carbon Dioxide 25 (21-31) mmol/L BUN 10 (6.0-23.0) mg/dL Creatinine 0.6 (0.6-1.5) mg/dL Est Cr Clr Drug Dosing 74.21 mL/min Estimated GFR (MDRD) > 60.0 ml/min Glucose 103 (60-110) mg/dL Calcium 8.7 L (8.8-10.8) mg/dL Blood Type Antibody Screen Crossmatch Med Orders - Current: Current Medications Albuterol (Ventolin Hfa) 8 gm INH Q4H PRN PRN Reason: Shortness of Breath Apixaban (Eliquis) 5 mg PO BID [facility] Last Admin: 05/30/17 21:16 Dose: 5 mg Heparin Sodium (Porcine) (Heparin Lock Flush 100 Units/Ml) 300 unit FLUSH Q8H PRN PRN Reason: Other Last Admin: 05/31/17 04:53 Dose: 300 unit Hydrochlorothiazide (Hydrochlorothiazide) 12.5 mg PO DAILY PRN PRN Reason: Hypertension Last Admin: 05/30/17 18:14 Dose: 12.5 mg Cefepime HCl 2 gm/ Premix 50 mls @ 100 mls/hr IV Q8H [facility] Last Admin: 05/30/17 23:04 Dose: 100 mls/hr Vancomycin HCl 1,250 mg/ (Sodium Chloride) 250 mls @ 166.667 mls/hr IV Q8H [facility] Last Admin: 05/31/17 03:13 Dose: 166.667 mls/hr Ondansetron HCl (Zofran) 4 mg IVPUSH Q4H PRN PRN Reason: Nausea Vancomycin HCl (Pharmacy To Dose - Vancomycin) 1 dose .XX ASDIRECTED [facility] Discontinued Medications Acetaminophen (Tylenol Extra Strength) 1,000 mg PO ONETIME ONE Stop: 05/29/17 20:35 Last Admin: 05/29/17 20:56 Dose: 1,000 mg Acetaminophen (Tylenol) 650 mg PO Q4H PRN PRN Reason: Fever Heparin Sodium (Porcine) (Heparin Lock Flush 10 Units/Ml) 50 unit FLUSH Q8HR PRN PRN Reason: Other Heparin Sodium (Porcine) (Heparin Lock Flush 100 Units/Ml) Confirm Administered Dose 300 unit .ROUTE .STK-MED ONE Stop: 05/30/17 04:47 Last Admin: 05/30/17 05:02 Dose: Not Given Heparin Sodium (Porcine) (Heparin Lock Flush 100 Units/Ml) Confirm Administered Dose 300 unit .ROUTE .STK-MED ONE Stop: 05/30/17 04:48 Last Admin: 05/30/17 05:02 Dose: Not Given Sodium Chloride (Normal Saline) 1,000 mls @ 500 mls/hr IV STAT ONE Stop: 05/29/17 22:32 Last Admin: 05/29/17 22:02 Dose: 500 mls/hr Cefepime HCl 2 gm/ Premix 50 mls @ 100 mls/hr IV ONETIME ONE Stop: 05/30/17 00:18 Last Admin: 05/30/17 00:10 Dose: 100 mls/hr Vancomycin HCl 1 gm/ Sodium (Chloride) 250 mls @ 166 mls/hr IV ONETIME ONE Stop: 05/30/17 01:23 Last Admin: 05/30/17 01:19 Dose: 166 mls/hr *Q Meaningful Use (DIS) - VTE *Q VTE Criteria *Q: - Stroke *Q Stroke Criteria *Q: - AMI *Q AMI Criteria *Q:
[2017-05-31] MEDS: Cefepime 2 GM in Premix Bag 1 BAG IV SCH (08:17)
[2017-05-31] MEDS: Apixaban 5 MG Tab PO SCH (08:23)
[2017-05-31 10:33] VITALS: BP 145/67
== END 2017-05-31 11:45 | disposition home or self-care (01) ==
LOC: MW.ED 19:59 → MW.NSY 23:56 → UNDOADMOB 23:56 → MW.MS 23:56
PROVIDERS: ADMIT Internal Medicine; ATTEND Internal Medicine
DX: D70.9 Neutropenia, unspecified (principal); D64.9 Anemia, unspecified; C83.30 Diffuse large B-cell lymphoma, unspecified site; I10 Essential (primary) hypertension; J45.909 Unspecified asthma, uncomplicated; Z79.01 Long term (current) use of anticoagulants; Z79.899 Other long term (current) drug therapy; Z88.0 Allergy status to penicillin; Z88.8 Allergy status to other drugs, medicaments and biological substances; Z91.048 Other nonmedicinal substance allergy status; Z90.49 Acquired absence of other specified parts of digestive tract; Z90.710 Acquired absence of both cervix and uterus; Z90.79 Acquired absence of other genital organ(s); Z98.890 Other specified postprocedural states
CPT/HCPCS: 36415; 36430; 71020; 80048; 80053; 81001; 83605; 85025; 86850; 86900; 86901; 86920; 86921; 86922; 87040; 87086; 96361; 96365; 96366; 96367; 96376; 99285; A9270; G0378; J0692; J1642; J3370; J7040; J7050; P9016; 99284

== ENCOUNTER 2018-01-14 12:05 | Day surgery (SDC) | payer BC, MEDICARE ==
[~2018-01-14 12:05] MED LIST: Lactated Ringers 1,000 ML IV SCH; Sodium Chloride 0.9% 10 ML Syringe FLUSH PRN; Sodium Chloride 0.9% 2.5 ML Syringe FLUSH PRN
[2018-01-14] MEDS ORDERED: Midazolam 1 MG/ML 2 ML SDV ONE (13:05)
[2018-01-14] MEDS ORDERED: Propofol 200 MG/20 ML SDV ONE ×2 (13:05→13:45)
[2018-01-14] MEDS ORDERED: fentaNYL 100 MCG/2 ML SDV ONE (13:05)
[2018-01-14] MEDS ORDERED: Lidocaine 2% 5 ML SDV ONE (13:05)
--- NOTE | 2018-01-14 13:16 | PCM.PREANE ---
Preanesthetic Assessment - Anesthesia/Transfusion/Family Hx Anesthesia History: Prior Anesthesia Without Reaction Other Type of Anesthesia Reaction Comment: grandfather during surgery due to succinylcholine Family History of Anesthesia Reaction: No Transfusion History: Prior Transfusion Without Reaction Intubation History: Unknown - Review of Systems General: No Symptoms Pulmonary: No Symptoms Cardiovascular: No Symptoms Gastrointestinal: Other (internal rectal mass) Neurological: No Symptoms Other: Reports: None - Physical Assessment Height: 1.6 m Weight: 105.687 kg ASA Class: 3 Mental Status: Alert & Oriented x3 Airway Class: Mallampati = 2 Dentition: Reports: Normal Dentition, Partial (partial lower both sides) Thyro-Mental Finger Breadths: 2 Mouth Opening Finger Breadths: 3 Lungs: Clear to Auscultation Cardiovascular: Regular Rate, Regular Rhythm - Allergies Allergies/Adverse Reactions: Allergies Allergy/AdvReac Type Severity Reaction Status Date / Time Penicillins Allergy Unknown Rash Verified 01/11/18 10:43 succinylcholine Allergy Unknown Cannot Verified 01/11/18 10:43 [Succinylcholine] Remember methylene blue Allergy Severe Hypotension Uncoded 05/29/17 20:20 - Blood Blood Available: No - Anesthesia Plan Pre-Op Medication Ordered: None - Acknowledgements Anesthesia Type Planned: MAC Pt an Appropriate Candidate for the Planned Anesthesia: Yes Alternatives and Risks of Anesthesia Discussed w Pt/Guardian: Yes Pt/Guardian Understands and Agrees with Anesthesia Plan: Yes PreAnesthesia Questionnaire - Past Health History Medical/Surgical History: Denies Medical/Surgical History HEENT History: Reports: Impaired Vision Other HEENT History: wears glasses , bottom partial Cardiovascular History: Reports: Blood Clots/VTE/DVT, Hypertension, Other (See Below) Other Cardiovascular History: blood clot to jugular 2 weeks after david cath placement Respiratory History: Reports: Asthma (mild) Gastrointestinal History: Reports: GERD Other Gastrointestinal History: acid reflux, 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 Genitourinary History: Reports: None FAMILY READINESS SUPPORT ASSISTANT History: Reports: Musculoskeletal History: Reports: Other (See Below) Other Musculoskeletal History: lt hip pain Endocrine/Metabolic History: Reports: Obesity/BMI 30+ (BMI 41.3, mobid obesity) Other Endocrine/Metabolic History: thyroid nodule Hematologic History: Reports: Anemia, Blood Transfusion(s), Iron Deficiency Oncologic (Cancer) History: Reports: Other (See Below) Other Oncologic History: 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, treatment finished 06/12/17 Dermatologic History: Reports: None - Infectious Disease History Infectious Disease History: Reports: Measles - Past Surgical History Head Surgeries/Procedures: Reports: None HEENT Surgical History: Reports: Adenoidectomy, Tonsillectomy Cardiovascular Surgical History: Reports: None Respiratory Surgical History: Reports: None GI Surgical History: Reports: Cholecystectomy, Colonoscopy (in '14) Other GI Surgeries/Procedures: Splenectomy Female Surgical History: Reports: Breast Biopsy, Hysterectomy, Salpingo- Oophorectomy Musculoskeletal Surgical History: Reports: Arthroscopic Knee Other Musculoskeletal Surgeries/Procedures:: rt scope x2 Oncologic Surgical History: Reports: Biopsy of Breast Dermatological Surgical History: Reports: Skin Biopsy Other Surgical History Comment: david-cath placement and removal - SUBSTANCE USE Smoking Status *Q: Never Smoker Recreational Drug Use History: No - HOME MEDS Home Medications: Home Meds Albuterol [Ventolin HFA] 1 puff INH Q4H PRN 11/23/13 [History] Ascorbic Acid [Vitamin C] 1,000 mg PO BID 04/12/17 [History] Multivitamin [Multivitamins] 1 tab PO DAILY 04/12/17 [History] Cholecalciferol (Vitamin D3) [Vitamin D3] 2,000 mg PO BID 05/29/17 [History] Fish Oil/[place]-3 Fatty Acids [Fish Oil 1,000 MG] 1,000 mg PO DAILY 05/29/17 [ History] Hydrochlorothiazide 12.5 mg PO DAILY PRN 05/29/17 [History] L.acidoph,Paracasei, B.lactis [Probiotic] 1 cap PO DAILY 05/29/17 [History] Magnesium 241 mg PO DAILY 05/29/17 [History] Vit C/E/Zn/Coppr/Lutein/Zeaxan [Preservision Areds 2 Softgel] 1 cap PO DAILY 10/10 [History] Aspirin [Ursine Aspirin] 81 mg PO DAILY 01/11/18 [History] Calcium Carbonate [Calcium] 200 mg PO BID 01/11/18 [History] Glucosamine/D3/Boswellia Vanita [Osteo Bi-Flex Tablet] 2 tab PO DAILY 01/11/18 [ History] Immune Enhance 3 tab PO ASDIRECTED PRN 01/11/18 [History] Ranitidine HCl [Zantac] 150 mg PO BID 01/11/18 [History] Tumeric 1,000 mg PO DAILY 01/11/18 [History] Vit A/Vit C/Vit E/Selenium Yst [Antioxidant Formula Tablet] 2 tab PO DAILY 01/11 [History] Vitamin B Complex 1 tab PO DAILY 01/11/18 [History] - CURRENT (IN HOUSE) MEDS Current Meds: Current Medications Lactated Ringer's (Ringers, Lactated) 1,000 mls @ 125 mls/hr IV ASDIRECTED JACQUELINE Sodium Chloride (Saline Flush) 10 ml FLUSH ASDIRECTED PRN PRN Reason: Keep Vein Open Sodium Chloride (Saline Flush) 2.5 ml FLUSH ASDIRECTED PRN PRN Reason: Keep Vein Open Sodium Chloride (Saline Flush) 10 ml FLUSH ASDIRECTED PRN PRN Reason: Keep Vein Open Sodium Chloride (Saline Flush) 2.5 ml FLUSH ASDIRECTED PRN PRN Reason: Keep Vein Open Discontinued Medications Fentanyl (Sublimaze) Confirm Administered Dose 100 mcg .ROUTE .STK-MED ONE Stop: 01/14/18 13:06 Lidocaine (Xylocaine-Mpf 2%) Confirm Administered Dose 10 ml .ROUTE .STK-MED ONE Stop: 01/14/18 13:06 Midazolam HCl (Versed 1 Mg/Ml) Confirm Administered Dose 2 mg .ROUTE .STK-MED ONE Stop: 01/14/18 13:06 Propofol (Diprivan 20 Ml) Confirm Administered Dose 400 mg .ROUTE .STK-MED ONE Stop: 01/14/18 13:06
--- NOTE | 2018-01-14 14:17 | PCM.OPNOTE ---
- General Post-Op/Procedure Note Date of Surgery/Procedure: 01/14/18 Operative Procedure(s): EGD and colonoscopy Findings: Large hiatal hernia, pyloric stenosis, hyperplastic polyps, descending colon polyp, rectal polyp, diverticulosis, grade IV hemorrhoid Pre Op Diagnosis: Rectal mass, hiatal hernia Post-Op Diagnosis: Large hiatal hernia, pyloric stenosis, hyperplastic polyps, descending colon polyp, rectal polyp, diverticulosis, grade IV hemorrhoid Anesthesia Technique: [facility] [place] Primary Surgeon: Ana Garvey Condition: Good
--- NOTE | 2018-01-14 15:00 | PCM48HPAN ---
Post Anesthesia Note - EVALUATION WITHIN 48HRS OF ANESTHETIC Vital Signs in Normal Range: Yes Patient Participated in Evaluation: Yes Respiratory Function Stable: Yes Airway Patent: Yes Cardiovascular Function Stable: Yes Hydration Status Stable: Yes Pain Control Satisfactory: Yes Nausea and Vomiting Control Satisfactory: Yes Mental Status Recovered: Yes Resp Rate: 15 - COMMENTS/OBSERVATIONS Free Text/Narrative:: no anesthesia problems
[2018-01-14 17:02] VITALS: BP 150/89
--- NOTE | 2018-01-14 17:59 | OR ---
SURGEON: MALGORZATA GARDUNO MD DATE OF PROCEDURE: 01/14/2018 PREOPERATIVE DIAGNOSES: Rectal mass, large hiatal hernia. POSTOPERATIVE DIAGNOSES: 1. Pyloric stenosis. 2. Hiatal hernia. 3. Grade 4 hemorrhoids. 4. Descending colon polyp. 5. Rectal polyp. 6. Diverticulosis. 7. Hyperplastic gastric polyps. PROCEDURES PERFORMED: Diagnostic esophagogastroduodenoscopy and colonoscopy. ANESTHESIA: MAC. INSTRUMENTS USED: Olympus endoscope and colonoscope. EXTENT OF EXAMINATION: To the pylorus, to the cecum. PREPARATION: Good. LIMITATIONS: None. INDICATION FOR EXAMINATION: The patient is a 67-year-old female who was found to have a questionable rectal mass on a recent well-woman exam. I did a digital rectal exam in clinic and noted some hemorrhoidal disease, but did not feel a mass. The patient has a hiatal hernia, but has never had an EGD done. We discussed the need for diagnostic EGD as well as colonoscopy. We discussed the procedure; expected perioperative course; and risks including bleeding, infection, or damage to the surrounding structures including perforation. The patient verbalized understanding and wishes to proceed. PROCEDURE IN DETAIL: The patient was brought to the endoscopy suite and placed in the left lateral decubitus position. A time-out was completed verifying the patient's name, age, date of , allergies, and procedure to be performed. A bite-block was placed in the patient's mouth, and monitored anesthesia care was induced. Continuous oxygen was provided via nasal cannula throughout the procedure. After adequate sedation was achieved, a well-lubricated endoscope was placed in the patient's mouth and advanced under direct visualization to the pylorus through the stomach. I attempted multiple times to get my scope to transverse past the pylorus, however, it appeared to be stenotic. The duodenum past the pyloric channel opening did appear healthy. A photograph was taken of the pylorus. A photograph was taken with the scope retroflexed within the stomach showing that the patient had a [id number] sized hiatal hernia. The patient was also noted to have hyperplastic-appearing gastric polyps within the body of the stomach. Biopsies were taken of the antrum body and fundus and sent for histologic review and H. pylori testing. One of the hyperplastic polyps was removed and sent to Pathology. The scope was brought into the proximal stomach, and a photograph was taken of the hiatal hernia sac as well as the GE junction. The GE junction appeared widely patent, but there was no evidence of esophagitis. The scope was then removed from the patient's mouth, and this portion of the procedure terminated. A digital rectal exam was performed. The patient was noted to have a large prolapsing left lateral hemorrhoid. A well- lubricated colonoscope was inserted into the rectum and advanced under direct visualization to the level of the cecum. The cecum was identified by both visual and anatomic landmarks. A photograph was taken of the cecal cap as well as with the scope retroflexed within the cecum. The scope was then fully withdrawn while examining the color, texture, anatomy, and integrity of the mucosa from the cecum to the anal canal. The patient was noted to have diverticulosis within the distal half of the colon. She was found to have a 2 to 3 mm sessile polyp within the descending colon. This was removed using a cold biopsy forceps. The scope was then brought into the rectum and retroflexed to allow visualization of the anal canal opening. This appeared normal, and a photograph was taken. Upon further inspection, the patient had a 1 to 2 mm polyp close to the anal canal. This was removed using a cold biopsy forceps and sent to Pathology. The scope was then straightened out and fully withdrawn. The [id number] time was 10 minutes. The patient tolerated the procedure well and was taken to PACU in stable condition. ENDOSCOPIC DIAGNOSES: 1. Pyloric stenosis. 2. Hiatal hernia. 3. Grade 4 hemorrhoids. 4. Descending colon polyp. 5. Rectal polyp. 6. Diverticulosis. 7. Hyperplastic gastric polyps. RECOMMENDATIONS: Follow up in the clinic in 2 weeks. WILLIAM VIZCARRA /[id number]
== END 2018-01-14 15:00 | disposition home or self-care (01) ==
LOC: MW.SDS 12:05
PROVIDERS: ATTEND Surgery
DX: K62.1 Rectal polyp (principal); K63.5 Polyp of colon; K31.7 Polyp of stomach and duodenum; K44.9 Diaphragmatic hernia without obstruction or gangrene; K64.3 Fourth degree hemorrhoids; K57.30 Diverticulosis of large intestine without perforation or abscess without bleeding; K31.1 Adult hypertrophic pyloric stenosis; K21.9 Gastro-esophageal reflux disease without esophagitis; J45.909 Unspecified asthma, uncomplicated; G62.0 Drug-induced polyneuropathy; T45.1X5A Adverse effect of antineoplastic and immunosuppressive drugs, initial encounter; M17.11 Unilateral primary osteoarthritis, right knee; I10 Essential (primary) hypertension; D50.9 Iron deficiency anemia, unspecified; Z88.0 Allergy status to penicillin; Z88.8 Allergy status to other drugs, medicaments and biological substances; Z91.048 Other nonmedicinal substance allergy status; Z79.82 Long term (current) use of aspirin; Z79.899 Other long term (current) drug therapy
CPT/HCPCS: 43239; 45380; J2250; J3010; J2704